=== PATIENT | female | born 1940 | race Caucasian/White ===

== ENCOUNTER → 2016-12-23 | Outpatient (CLI) | payer OTHER ==
[~2016-12-23] MED LIST: INDAPAMIDE1.25 MG PO; LISINOPRIL5 MG PO
== END | disposition home or self-care (01) ==
DX: M16.11 Unilateral primary osteoarthritis, right hip (principal); R26.2 Difficulty in walking, not elsewhere classified; M25.551 Pain in right hip; M25.651 Stiffness of right hip, not elsewhere classified; M62.81 Muscle weakness (generalized)
CPT/HCPCS: 97110 GP; 97150 GO; 97161 GP; 97165 GO; G8978 GP; G8979 GP; G8980 GP; G8984 GO; G8985 GO; G8986 GO

== ENCOUNTER 2017-01-12 06:55 | Inpatient (IN) | payer OTHER ==
[~2017-01-12] VITALS: Ht 154.9 cm; Wt 94.0 kg
[~2017-01-12 06:55] MED LIST changes: +BACK & BODY PA1 EACH PO; +LIPITOR20 MG PO; +LOZOL2.5 MG PO; +PRESERVISION T1 EACH PO; +PRINIVIL20 MG PO; +ULTRAM50 MG PO; +VITAMIN C500 M1 PO; +VITAMIN D-32000 UNI2 PO; +ZOLOFT50 MG PO
[2017-01-12 07:38] VITALS: BP 133/55
[2017-01-12 15:47] LABS: MCH 29.3 PG (29.0-34.0); MCHC 32.4 G/DL (30.0-36.0); MCV 90.5 FL (83-99); MEAN PLAT.VOLUME 10.7 uM^3 (9.5-12.4); PLATELET COUNT 181 K/uL (156-360); RBC DIS.WIDTH-CV 12.7 % (11.8-14.6); RBC DIS.WIDTH-SD 41.9 % (39-53); WHITE BLOOD COUNT 8.3 K/uL (4.1-10.2)
[2017-01-12 16:12] VITALS: BP 139/61
[2017-01-12 20:04] VITALS: BP 123/59
[2017-01-13 00:30] VITALS: BP 135/60
[2017-01-13 04:30] VITALS: BP 1208/56
[2017-01-13 06:20] LABS: HEMATOCRIT 39.3 % (36.0-46.0); MCV 89.1 FL (83-99)
[2017-01-13 06:42] LABS: ANION GAP 14 MEQ/L (2-14); CHLORIDE 100 MEQ/L (99-109); GFR ESTIMATE (CALCULATED) > 59 mL/min/; GLUCOSE 145 mg/dL (70-99); POTASSIUM 3.9 MEQ/L (3.7-5.4); SAMPLE HEMOLYSIS CHECK 1; SAMPLE ICTERIC CHECK 0; SAMPLE LIPEMIA CHECK 0; SODIUM 139 MEQ/L (136-147); UREA NITROGEN (BUN) 13 mg/dL (9-23)
[2017-01-13 07:44] VITALS: BP 135/64
[2017-01-13 12:04] VITALS: BP 107/51
[2017-01-13 15:39] VITALS: BP 126/60
[2017-01-13 20:11] VITALS: BP 142/61
[2017-01-14 00:16] VITALS: BP 129/61
[2017-01-14 04:04] VITALS: BP 122/58
[2017-01-14 08:00] VITALS: BP 112/54
[2017-01-14] MEDS ORDERED: SENNA PLUS TAB1 EACH PO (08:59)
[2017-01-14] MEDS ORDERED: HYDROCODON-ACE1 EAC7 PO (09:00)
[2017-01-14] MEDS ORDERED: LOVENOX40 MG/0.4 SC (09:00)
[2017-01-14 11:35] VITALS: BP 131/64
[2017-01-14 15:42] VITALS: BP 124/60
== END 2017-01-14 16:51 | disposition home health service (06) | DRG 470 ==
LOC: 3WEST 06:55 → 2SOUTH 06:55 → 3WEST 15:57
PROVIDERS: Orthopaedic Surgery
PROC: 0SR902A Replacement of Right Hip Joint with Metal on Polyethylene Synthetic Substitute, Uncemented, Open Approach (ICD-10-PCS; principal; 2017-01-12)
DX: M16.11 Unilateral primary osteoarthritis, right hip (principal); I10 Essential (primary) hypertension; Z68.39 Body mass index [BMI] 39.0-39.9, adult; F32.9 Major depressive disorder, single episode, unspecified; E78.00 Pure hypercholesterolemia, unspecified; Z90.49 Acquired absence of other specified parts of digestive tract
CPT/HCPCS: 73501; 80048; 85014; 85018; 85027; J0131; J0690; J1170; J1650; J2175; J2405; J3010; J7050

== ENCOUNTER 2017-01-21 23:31 | Observation (INO) | payer OTHER ==
[~2017-01-21] VITALS: Ht 154.9 cm; Wt 96.3 kg
[~2017-01-21 23:31] MED LIST changes: +HYDROCODON-ACE1 EAC7 PO; +LOVENOX40 MG/0.4 SC; +SENNA PLUS TAB1 EACH PO
[2017-01-22 00:29] LABS: HEMATOCRIT 33.8 % (36.0-46.0); MCH 28.6 PG (29.0-34.0); MCHC 32.5 G/DL (30.0-36.0); MCV 87.8 FL (83-99); MEAN PLAT.VOLUME 9.5 uM^3 (9.5-12.4); PLATELET COUNT 239 K/uL (156-360); RBC DIS.WIDTH-CV 12.5 % (11.8-14.6); RBC DIS.WIDTH-SD 39.8 % (39-53); RED BLOOD COUNT 3.85 M/uL (3.80-5.20); WHITE BLOOD COUNT 7.9 K/uL (4.1-10.2)
[2017-01-22 00:34] LABS: CHLORIDE 99 mEq/L (99-109); POTASSIUM 3.3 mEq/L (3.7-5.4); SODIUM 136 mEq/L (136-147)
[2017-01-22 00:36] LABS: GLUCOSE 115 mg/dL (70-99)
[2017-01-22 00:37] LABS: ANION GAP 10 MEQ/L (2-14)
[2017-01-22 00:40] LABS: GFR ESTIMATE (CALCULATED) > 59 mL/min/
[2017-01-22 00:41] LABS: UREA NITROGEN (BUN) 18 mg/dL (9-23)
[2017-01-22 01:14] LABS: ADD MIUA? YES; BILIRUBIN NEGATIVE; BLOOD NEGATIVE; COLOR STRAW ((YELLOW)); GLUCOSE (STRIP) NEGATIVE; KETONES NEGATIVE; LEUKOCYTES MODERATE; NITRITE NEGATIVE; PROTEIN (STRIP) NEGATIVE; SPECIFIC GRAVITY 1.005 (1.000-1.030); UROBILINOGEN 0.2 MG/DL (0.2-1.0)
[2017-01-22 01:32] LABS: BACTERIA NONE SEEN /HPF; EPITHELIAL CELLS RARE /HPF; MUCUS TRACE /LPF; UCUL ADDED? NO
[2017-01-22] MEDS ORDERED: NYATA15 GM TP (02:23)
[2017-01-22 03:02] VITALS: BP 149/71
[2017-01-22 07:21] VITALS: BP 117/57
== END 2017-01-22 16:45 | disposition home or self-care (01) ==
LOC: EME → EDBD 23:31 → EDOF 01-22 01:46 → 5WEST 01-22 01:46 → EDOF 01-22 01:46 → ENRESERV 01-22 01:47 → 5WEST 01-22 02:47
PROVIDERS: Emergency Medicine
DX: G89.18 Other acute postprocedural pain (principal); T84.84XA Pain due to internal orthopedic prosthetic devices, implants and grafts, initial encounter; Z96.641 Presence of right artificial hip joint; I10 Essential (primary) hypertension; E78.5 Hyperlipidemia, unspecified; Z66 Do not resuscitate; Z79.82 Long term (current) use of aspirin
CPT/HCPCS: 73552; 80048; 81003; 85027; 93971; 99281; 99285; G0378; G8978 GP CI; G8979 GP CH; G8987 GO CI; G8988 GO CH; J1650

== ENCOUNTER 2017-01-27 08:23 | Inpatient (IN) | payer OTHER ==
[~2017-01-27] VITALS: Ht 154.9 cm; Wt 89.4 kg
[~2017-01-27 08:23] MED LIST changes: +NYATA15 GM TP
[2017-01-27 09:40] VITALS: BP 136/61
[2017-01-27 12:38] VITALS: BP 140/62
[2017-01-27 12:51] LABS: HEMATOCRIT 35.9 % (36.0-46.0); MCH 29.3 PG (29.0-34.0); MCHC 32.9 G/DL (30.0-36.0); MCV 89.1 FL (83-99); MEAN PLAT.VOLUME 10.1 uM^3 (9.5-12.4); PLATELET COUNT 310 K/uL (156-360); RBC DIS.WIDTH-SD 42.2 % (39-53); RED BLOOD COUNT 4.03 M/uL (3.80-5.20); WHITE BLOOD COUNT 9.4 K/uL (4.1-10.2)
[2017-01-27 13:06] LABS: PROTHROMBIN TIME 11.5 SEC (10.2-12.9)
[2017-01-27 13:09] LABS: PTT 28.9 SEC (25-37)
[2017-01-27 20:47] LABS: MCH 29.3 PG (29.0-34.0); MCHC 32.5 G/DL (30.0-36.0); MCV 90.2 FL (83-99); MEAN PLAT.VOLUME 9.5 uM^3 (9.5-12.4); PLATELET COUNT 315 K/uL (156-360); RBC DIS.WIDTH-CV 12.8 % (11.8-14.6); RBC DIS.WIDTH-SD 42.1 % (39-53); RED BLOOD COUNT 3.99 M/uL (3.80-5.20); WHITE BLOOD COUNT 15.6 K/uL (4.1-10.2)
[2017-01-27 21:29] VITALS: BP 136/58
[2017-01-28] VITALS: BP 103/50
[2017-01-28 03:48] VITALS: BP 103/49
[2017-01-28 07:40] LABS: HEMATOCRIT 30.7 % (36.0-46.0); MCV 89.2 FL (83-99)
[2017-01-28 08:05] LABS: ANION GAP 6 MEQ/L (2-14); CHLORIDE 100 MEQ/L (99-109); GFR ESTIMATE (CALCULATED) > 59 mL/min/; GLUCOSE 123 mg/dL (70-99); POTASSIUM 3.6 MEQ/L (3.7-5.4); SAMPLE HEMOLYSIS CHECK 0; SAMPLE ICTERIC CHECK 0; SAMPLE LIPEMIA CHECK 0; SODIUM 136 MEQ/L (136-147); UREA NITROGEN (BUN) 17 mg/dL (9-23)
[2017-01-28 08:13] VITALS: BP 117/53
[2017-01-28 10:59] VITALS: BP 97/52
[2017-01-28 16:48] VITALS: BP 99/68
[2017-01-28 20:01] LABS: HEMATOCRIT 30.4 % (36.0-46.0); MCV 87.9 FL (83-99)
[2017-01-28 20:54] VITALS: BP 96/53
[2017-01-29 00:02] VITALS: BP 101/46
[2017-01-29 03:58] VITALS: BP 89/44
[2017-01-29 08:02] VITALS: BP 121/58
[2017-01-29 15:39] VITALS: BP 99/47
[2017-01-29 23:35] VITALS: BP 99/50
[2017-01-30 07:45] VITALS: BP 114/53
[2017-01-30] MEDS ORDERED: LOVENOX40 MG/0.4 SC (08:34)
[2017-01-30] MEDS ORDERED: HYDROCODON-ACE1 EAC7 PO (08:35)
== END 2017-01-30 12:02 | DRG 467 ==
LOC: ENRESERV 08:23 → 3EAST 08:23 → ENRESERV 08:32 → 3EAST 09:06 → ENPENDDIS 01-30 → 3EAST 01-30 12:02
PROVIDERS: Orthopaedic Surgery; Physician Assistant
DX: T84.030A Mechanical loosening of internal right hip prosthetic joint, initial encounter (principal); M97.01XA Periprosthetic fracture around internal prosthetic right hip joint, initial encounter; Y79.2 Prosthetic and other implants, materials and accessory orthopedic devices associated with adverse incidents; I10 Essential (primary) hypertension; E78.00 Pure hypercholesterolemia, unspecified; F41.1 Generalized anxiety disorder; F33.0 Major depressive disorder, recurrent, mild; Z79.82 Long term (current) use of aspirin
CPT/HCPCS: 73501; 80048; 85014; 85018; 85027; 85610; 85730; 86900; 86901; 94799; 97530 GO; C1713; C1776; J0131; J0690; J1100; J1170; J1650; J1885; J2175; J2250; J2405; J2710; J3010; J7030